=== PATIENT | male | born 1960 | race African-American/Black ===

== ENCOUNTER 2024-05-26 15:02 | Emergency (ER) | payer OTHER ==
[~2024-05-26] VITALS: Ht 180.3 cm; Wt 92.5 kg
[2024-05-26] MEDS: ACETAMINOPHEN 325 MG TAB PO ONE (15:32)
[2024-05-26 15:58] LABS: Potassium 4.1 mmol/L (3.5-5.1); Sodium 140 mmol/L (136-145)
[2024-05-26 15:59] LABS: Anion Gap 8 (5-15); Carbon Dioxide 25 mmol/L (20-31)
[2024-05-26 16:00] LABS: Calcium 9.7 mg/dL (8.7-10.4)
[2024-05-26 16:05] LABS: BUN/Creatinine Ratio 6.5 (10.0-20.0); Blood Urea Nitrogen 11 mg/dL (9-23)
[2024-05-26 16:16] LABS: Chloride 107 mmol/L (98-107); Glucose 110 mg/dL (74-106)
[2024-05-26 17:45] LABS: Urine Bacteria FEW /hpf (None Seen); Urine Blood Negative /uL (Negative); Urine Clarity Clear (Clear); Urine Color Light-Yellow (Yellow); Urine Mucus FEW (None Seen); Urine Protein, UAD Negative (Negative); Urine Specific Gravity 1.025 (1.001-1.035); Urine Urobilinogen Normal (Negative); Urine WBC 1 /hpf (0 - 3)
--- NOTE | 2024-05-26 18:53 | ED.PDOC ---
History of Present Illness HPI Comments 63-year-old male patient with past medical history of GERD and hyperlipidemia presented with complaints of right flank pain. He mentioned that he has been having right-sided flank pain for last one month. nonradiating to the groin, aggravating by posture. He mentioned the pain is now 2 out of 10 but sometimes during a specific posterior it gets " locked up" and has 10/10 pain. He is a business solutions analyst by occupation. He mentioned that he has been trying to see PCP for last one month. but could not do because of changing insurance He also mentioned as he has some kidney disease as told by his physician long time ago. His pain is not associated with any urinary symptoms complaint of fever, chills. He denied any complaints of chest pain, shortness of breath, nausea, vomiting, diarrhea, abdominal pain. Past medical history GERD and hyperlipidemia Past surgical history Denied Social history Denied smoking, marijuana Mentioned occasional alcohol intake Family history Noncontributory to the above illness Medication history Protonix, atorvastatin Review of system As described in the HPI Examination General Appearance: Alert, Oriented X3, Cooperative, No acute distress, patient is able to walk without any distress on neurological deficits HEENT: EOMI Respiratory: Clear to auscultation, Normal air movement Cardiovascular: Regular rate, Normal S1, Normal S2 Abdominal: Normal bowel sounds Extremities: No cyanosis, No edema, Normal pulses, No tenderness/swelling Musculoskeletal: Mild right flank tenderness, no signs of radiculopathy, no central spine lumbar tenderness, no sciatica like Skin: No rashes, No breakdown Neuro: Normal speech and tone Chief Complaint: Flank Pain Time Seen by MD: 15:11 Reviewed Notes: Nurses Notes Information Source: Patient Mode of Arrival: Ambulatory Was a procedure done? Was a procedure done?: No Differential Dx Considerations may include: UTI, pyelonephritis, chronic musculoskeletal pain, osteoporosis, mass, infection X-Ray, Labs, Meds, VS Vital Signs Date Time Temp Pulse Resp B/P (MAP) Pulse Ox O2 Delivery O2 Flow Rate FiO2 05/26/24 19:05 98.4 98 16 147/89 (108) 97 98.4 05/26/24 15:38 98.4 73 20 133/79 (97) 97 98.4 05/26/24 15:38 73 20 97 Room Air 05/26/24 15:13 98.4 71 18 156/81 (106) 96 Lab Test 11/27/24 15:35 05/26/24 15:31 Range/Units Sodium Level 140 136-145 mmol/L Potassium Level 4.1 3.5-5.1 mmol/L Chloride Level 107 98-107 mmol/L Carbon Dioxide Level 25 20-31 mmol/L Anion Gap 8 5-15 Blood Urea Nitrogen 11 9-23 mg/dL Creatinine 1.70 H 0.700-1.30 mg/dL Glomerular Filtration Rate Calc 45 >90 mL/min BUN/Creatinine Ratio 6.5 L 10.0-20.0 Serum Glucose 110 H 74-106 mg/dL Calcium Level 9.7 8.7-10.4 mg/dL Urine Color Light-yellow Yellow Urine Clarity Clear Clear Urine pH 5.0 5.0-9.0 Urine Specific Bromide 1.025 1.001-1.035 Urine Protein Negative Negative Urine Ketones Negative Negative Urine Blood Negative Negative /uL Urine Nitrite Negative Negative Urine Bilirubin Negative Negative Urine Urobilinogen Normal Negative mg/dL Urine Leukocyte Esterase Negative Negative /uL Urine RBC 1 0 - 3 /hpf Urine WBC 1 0 - 3 /hpf Urine Squamous Epithelial Cells Few <5 /hpf Urine Uric Acid Crystals Few None Seen /hpf Urine Bacteria Few H None Seen /hpf Urine Mucus Few None Seen Urine Glucose Normal Normal mg/dL Time of 1ST Reevaluation: 18:00 (patient refused pain medications as he mentioned he doesnt have any pain) Reevaluation 1ST: Improved Patient Education/Counseling: Diagnosis, Treatment Family Education/Counseling: No Family Present Comments Patient presented with the a right-sided flank pain. workup was initiated. Patient was given Tylenol but he refused. No signs of UTI on urinalysis, shows few urice acid crystals. Patient has been observed in the ED adequate length of time to insure improvement/stability. pt didn't report any pain on discharge, was discharged to home. Departure 1 Departure Time of Disposition: 18:46 Impression: Primary Impression: Musculoskeletal back pain Disposition: HOME / SELF CARE / HOMELESS Condition: Stable Additional Instructions: Additional discharge instructions: You MUST follow-up with your primary care/family doctor in 1 to 2 days. If you are unable to see your primary care/family doctor, please return to our emergency room for re-assessment and re-evaluation in 1 to 2 days. Return to the emergency room here in our facility or to the nearest ER [facility] if your symptoms change or worsen. Adequate fluid hydration. Take over the counter acetaminophen for pain, avoid NSAIDs. Repeat BMP within 1 week. Discharged With: Self JOO FLEMING RESIDENT May 26, 2024 18:53
[2024-05-26 19:05] VITALS: BP 147/89; PULSE 98; RESP 16; TEMP 98.4; O2SAT 97
== END 2024-05-26 19:07 | disposition home or self-care (01) ==
LOC: ER 15:02
DX: M54.9 Dorsalgia, unspecified (principal); R10.9 Unspecified abdominal pain; E78.5 Hyperlipidemia, unspecified; K21.9 Gastro-esophageal reflux disease without esophagitis; Z79.899 Other long term (current) drug therapy
CPT/HCPCS: 36415; 80048; 81001